=== PATIENT | female | born 1960 | race African-American/Black ===

== ENCOUNTER 2023-03-15 04:15 | Emergency (ER) | payer MEDICAID ==
[~2023-03-15] VITALS: Ht 157.5 cm; Wt 70.0 kg
[~2023-03-15 04:15] MED LIST: AMLO10TA4 PO; ASPI-1406 PO
[2023-03-15 04:37] VITALS: BP 138/81
[2023-03-15 05:28] LABS: BASOPHILS % 0.2 % (0.0-2.0); HEMATOCRIT. 47.7 % (36.0-48.0); HEMOGLOBIN. 15.8 g/dL (12.0-16.0); MEAN CORPUSCULAR VOLUME 90.6 fL (81.0-99.0); MEAN PLATELET VOLUME 7.3 fl (7.4-10.4); NEUTROPHILS % 87.8 % (40.0-76.0); PLATELET 365 x1000/uL (130-400); RED BLOOD CELL COUNT 5.27 mill/uL (4.2-5.4); RED CELL DISTRIBUTION WIDTH 13.4 % (11.6-14.6)
[2023-03-15 05:40] LABS: CHLORIDE 103 mEq/L (98-107)
== END 2023-03-15 09:34 | disposition home or self-care (01) ==
LOC: ER 04:15
DX: R11.2 Nausea with vomiting, unspecified (principal); Z53.21 Procedure and treatment not carried out due to patient leaving prior to being seen by health care provider
CPT/HCPCS: 36415; 80053; 83690; 85025; 99281; Z7610; 99283

== ENCOUNTER 2023-03-15 19:09 | Emergency (ER) | payer MEDICAID ==
[~2023-03-15] VITALS: Ht 170.2 cm; Wt 73.0 kg
[2023-03-15] MEDS ORDERED: ONDANSETRON HCL 4MG/2ML INJ IV STA (19:49)
[2023-03-15] MEDS ORDERED: MORPHINE SULFATE 4 MG/ML CPJ (NOT FOR IM USE) IV STA (19:49)
[2023-03-15] MEDS ORDERED: SODIUM CHLORIDE 0.9% 1,000 ML IV ONE (20:00)
[2023-03-15 20:53] LABS: BASOPHILS % 0.6 % (0.0-2.0); HEMATOCRIT. 42.5 % (36.0-48.0); HEMOGLOBIN. 14.5 g/dL (12.0-16.0); LYMPHOCYTES % 15.7 % (20.0-50.0); MEAN CORPUSCULAR HEMOGLOBIN 29.8 pg (28.0-32.0); MEAN CORPUSCULAR VOLUME 87.4 fL (81.0-99.0); MONOCYTES % 7.3 % (2.0-8.0); NEUTROPHILS % 76.4 % (40.0-76.0); PLATELET 379 x1000/uL (130-400); RED BLOOD CELL COUNT 4.86 mill/uL (4.2-5.4); RED CELL DISTRIBUTION WIDTH 13.1 % (11.6-14.6)
[2023-03-15 20:58] LABS: CHLORIDE 98 mEq/L (98-107)
[2023-03-15 21:03] LABS: PROTHROMBIN TIME 10.9 sec (9.6-11.0)
[2023-03-15 21:06] LABS: ETHANOL BLOOD < 10 mg/dL
[2023-03-15] MEDS ORDERED: POTASSIUM CHLORIDE INJ 40 MEQ in DEXT 5% WATER 250 ML IV NR (22:00)
[2023-03-15] MEDS ORDERED: ONDANSETRON HCL 4MG/2ML INJ IV NR (22:30)
[2023-03-15] MEDS ORDERED: IOHEXOL-300 100 ML BOTTLE ONE (23:11)
[2023-03-16] MEDS ORDERED: SODIUM CHLORIDE 0.9% 1,000 ML IV SCH
[2023-03-16] MEDS ORDERED: CLONIDINE 0.1MG TABLET PO PRN
[2023-03-16] MEDS ORDERED: DIPHENHYDRAMINE 50MG/ML VIAL IV PRN
[2023-03-16] MEDS ORDERED: HYDRALAZINE 20MG/ML VIAL IV PRN
[2023-03-16] MEDS ORDERED: MAGNESIUM/ALUMINUM HYDROXIDE/SIMETHICONE 30ML UDC PO PRN
[2023-03-16] MEDS ORDERED: LORAZEPAM 2MG/ML CPJ IV PRN
[2023-03-16] MEDS ORDERED: ACETAMINOPHEN 325MG TABLET PO PRN ×2
[2023-03-16] MEDS ORDERED: ONDANSETRON HCL 4MG/2ML INJ IV PRN
[2023-03-16] MEDS ORDERED: MORPHINE SULFATE 2 MG/ML CPJ (NOT FOR IM USE) IV PRN
[2023-03-16] MEDS ORDERED: POTASSIUM CHLORIDE INJ 40 MEQ in DEXT 5% WATER 250 ML IV ONE ×2
[2023-03-16] MEDS ORDERED: ZOLPIDEM TARTRATE 5MG TABLET PO PRN
[2023-03-16] MEDS ORDERED: NALOXONE HCL 0.4MG/ML VIAL IV PRN (00:15)
[2023-03-16] MEDS ORDERED: KCL 20MEQ/100ML X 2 FOR TOTAL KCL 40MEQ/200ML IV NR (01:00)
[2023-03-16 05:00] VITALS: BP 110/60
[2023-03-16 05:18] LABS: BASOPHILS % 1.2 % (0.0-2.0); EOSINOPHILS % 0.1 % (0.0-5.0); HEMATOCRIT. 42.5 % (36.0-48.0); HEMOGLOBIN. 14.3 g/dL (12.0-16.0); LYMPHOCYTES % 21.6 % (20.0-50.0); MEAN CORPUSCULAR HEMOGLOBIN 29.7 pg (28.0-32.0); MEAN CORPUSCULAR VOLUME 88.4 fL (81.0-99.0); MEAN PLATELET VOLUME 7.6 fl (7.4-10.4); NEUTROPHILS % 69.1 % (40.0-76.0); PLATELET 351 x1000/uL (130-400); RED BLOOD CELL COUNT 4.81 mill/uL (4.2-5.4); RED CELL DISTRIBUTION WIDTH 13.1 % (11.6-14.6)
[2023-03-16 05:27] LABS: CHLORIDE 95 mEq/L (98-107)
[2023-03-16 05:34] LABS: PHOSPHORUS 3.2 mg/dL (2.5-4.9)
[2023-03-16] MEDS ORDERED: PANTOPRAZOLE SODIUM 40 MG/VIAL IV SCH (06:00)
== END 2023-03-16 06:06 | disposition home or self-care (01) ==
LOC: ER 19:09 → CANBEDREQ 03-16 04:54 → ER 03-16 06:06
DX: E87.6 Hypokalemia (principal); R11.2 Nausea with vomiting, unspecified; R10.30 Lower abdominal pain, unspecified; F12.90 Cannabis use, unspecified, uncomplicated; F41.9 Anxiety disorder, unspecified; I10 Essential (primary) hypertension
CPT/HCPCS: 36415; 74177; 80048; 80053; 80320; 83605; 83690; 83735; 84100; 85025; 85610; 96361; 96365; 96366; 96375; 96376; 99285; J2270; J2405; J3480; J7030; J7060; Q9967; Z7610; G0480

== ENCOUNTER 2024-08-14 19:50 | Emergency (ER) | payer MEDICAID ==
[~2024-08-14] VITALS: Ht 160 cm; Wt 68.0 kg
[2024-08-14 20:02] VITALS: BP 152/70; PULSE 67; RESP 18; TEMP 97.5; O2SAT 100
== END 2024-08-15 00:43 | disposition left against medical advice (07) ==
LOC: ER 19:50
DX: R11.2 Nausea with vomiting, unspecified (principal); R10.13 Epigastric pain; R05.9 Cough, unspecified; Z53.21 Procedure and treatment not carried out due to patient leaving prior to being seen by health care provider
CPT/HCPCS: 93005

== ENCOUNTER 2025-03-05 09:49 | Emergency (ER) | payer MEDICAID ==
[~2025-03-05] VITALS: Ht 160 cm; Wt 58.9 kg
[~2025-03-05 09:49] MED LIST changes: +AMLO-905 PO; -AMLO10TA4 PO
[2025-03-05 10:00] VITALS: O2SAT 99
[2025-03-05 10:27] LABS: CLARITY URINE CLEAR (CLEAR); COLOR URINE YELLOW (YELLOW); GLUCOSE URINE NEGATIVE (NEGATIVE); KETONES URINE TRACE (NEGATIVE); LEUKOCYTE ESTERASE URINE NEGATIVE (NEGATIVE); NITRITE URINE NEGATIVE (NEGATIVE); OCCULT BLOOD URINE NEGATIVE (NEGATIVE); PROTEIN URINE 1+ (NEGATIVE); SPECIFIC GRAVITY URINE 1.021 (1.005-1.030); UROBILINOGEN URINE 0.2 E.U./dL (0.2-1.0)
[2025-03-05] MEDS ORDERED: MUPI15CR11 TP (10:55)
[2025-03-05 11:01] LABS: CALCIUM OXALATE CRYSTALS URINE 3+ /lpf; MUCUS URINE 1+ /lpf (< = 2+); SQUAMOUS EPITHELIAL CELL URINE 2+ /lpf (RARE/1+)
[2025-03-05 11:03] LABS: WBC URINE 0-2 /hpf (0-2)
[2025-03-05 11:04] LABS: RBC URINE NONE SEEN /hpf (0-2)
[2025-03-05 11:06] LABS: BACTERIA URINE TRACE
[2025-03-05 11:17] VITALS: BP 163/78; PULSE 54; RESP 18; TEMP 37.2; O2SAT 100
== END 2025-03-05 12:47 | disposition home or self-care (01) ==
LOC: ER 09:49
DX: L98.8 Other specified disorders of the skin and subcutaneous tissue (principal); F41.9 Anxiety disorder, unspecified; I10 Essential (primary) hypertension; Z79.82 Long term (current) use of aspirin; Z79.899 Other long term (current) drug therapy
CPT/HCPCS: 81003; 99283; 99284